=== PATIENT | female | born 1985 | race Two or more races ===

== ENCOUNTER 2017-07-27 16:43 | Emergency (ER) | payer MEDICAID, OTHER ==
[~2017-07-27] VITALS: Ht 152.4 cm; Wt 70.3 kg
[~2017-07-27 16:43] MED LIST: CIPROFLOXACIN500 M2 ORAL; HYDROCODON-ACE1 EA15 ORAL; IBUPROFEN600 MG ORAL; KEFLEX500 MG ORAL; LOMOTIL TABLET1 EACH ORAL; METRONIDAZOLE500 MG ORAL; NKM; NORCO 5-325 TA1 EACH ORAL
[2017-07-27 17:25] VITALS: BP 140/98
[2017-07-27] MEDS ORDERED: Cephalexin 500mg cap ORAL ONE (17:45)
[2017-07-27] MEDS ORDERED: KEFLEX500 MG ORAL (17:53)
[2017-07-27 18:28] VITALS: BP 140/98
--- NOTE | 2017-07-31 07:47 | Emergency Room Report ---
History of Present Illness General Chief Complaint: General Complaint Source: Patient Present Illness HPI Patient is a 32-year-old female who presented after increased pain to the left lower abdomen. Patient recent approximately month ago the patient had noted having increased pain to the incision site. She had small amount of drainage from the left side of the wound. She denies any fever. She reports having increased pain. Patient had a procedure at [facility]. She denies any vomiting.She denied any vaginal discharge or pelvic pain Allergies: Coded Allergies: No Known Allergies (Unverified , 09/21/14) Patient History Last Menstrual Period: Current : 5 Para: 5 Reviewed Nursing Documentation: PMH: Agreed, PSxH: Agreed Nursing Documentation-PMH Past Medical History: No Stated History Review of Systems All Other Systems: negative except mentioned in HPI Physical Exam Vital Signs Date Time Temp Pulse Resp B/P (MAP) Pulse Ox O2 Delivery O2 Flow Rate FiO2 07/27/17 17:01 98.4 74 17 140/98 99 Room Air General Appearance: well appearing, no apparent distress, alert, GCS 15 Head: normocephalic, atraumatic ENT: hearing grossly normal, normal voice Neck: full range of motion, supple Respiratory: no respiratory distress, speaking full sentences Cardiovascular #1: normal inspection, regular rate, rhythm Gastrointestinal: normal inspection, normal bowel sounds, non tender, soft Musculoskeletal: no calf tenderness Neurologic: normal inspection, alert, oriented x3, responsive, normal gait Psychiatric: mood/affect normal Skin: no rash, other - minimal drainage to left side of incision, no erythema, wound slightly open. Medical Decision Making Diagnostic Impression: Primary Impression: Wound infection after surgery ER Course The patient presented for increased drainage from her wound. The patient appears to have a wound dehiscence which is minimally infected. The patient was given prescription for Keflex. She is advised to followup with her [facility] for recheck. Patient is advised to return if any worsening condition or if any changes in status that are concerning. This report is dictated with [email or web address] software which may occasionally lead to discrepancies related to use of this software. Last Vital Signs Date Time Temp Pulse Resp B/P (MAP) Pulse Ox O2 Delivery O2 Flow Rate FiO2 07/27/17 18:28 98.4 78 17 140/98 99 Room Air Status: improved Disposition: HOME, SELF-CARE Condition: Stable Scripts Cephalexin* (KEFLEX*) 500 Mg Capsule 500 MG ORAL Q6H, #28 CAP 0 Refills Prov: Georges Virk 07/27/17 Referrals: [facility],REFERRING (PCP) Patient Instructions: Wound Infection Georges Virk Jul 31, 2017 07:47
== END 2017-07-27 18:29 | disposition home or self-care (01) ==
LOC: EMR 18:03
DX: L08.89 Other specified local infections of the skin and subcutaneous tissue (principal); T81.4XXA Infection following a procedure, initial encounter; Y83.8 Other surgical procedures as the cause of abnormal reaction of the patient, or of later complication, without mention of misadventure at the time of the procedure; Y92.9 Unspecified place or not applicable
CPT/HCPCS: 99283